=== PATIENT | female | born 1980 | race Caucasian/White ===

== ENCOUNTER → 2024-07-22 11:06 | Outpatient (REF) | payer BC, SELFPAY | LOC: HWWDC 11:06 | PROVIDERS: ATTENDING PHYSICIAN Nurse Practitioner Obstetrics & Gynecology; FAMILY PHYSICIAN Nurse Practitioner Adult Health | DX: Z12.31 Encounter for screening mammogram for malignant neoplasm of breast (principal) | CPT/HCPCS: 77063; 77067 ==

== ENCOUNTER 2025-07-15 14:08 | Emergency (ER) | payer OTHER, SELFPAY ==
[2025-07-15 14:18] VITALS: BP 114/75
[2025-07-15 14:40] LABS: Hematocrit 34.1 % (37.0-47.0); Hemoglobin 10.7 g/dL (12.0-16.0); Mean Corp Hgb Conc. 31.4 g/dL (33.0-37.0); Mean Corpuscular Volume 80.8 fL (81.0-99.0); Nucleated Red Blood Cells % 0 %; Platelet Count 180 10^3/uL (130-400); Red Cell Dist. Width 14.4 % (11.5-14.5)
[2025-07-15 14:57] LABS: Urine Character Clear (Clear)
[2025-07-15 15:01] LABS: HCG, Serum Qualitative Screen Negative
[2025-07-15 15:06] LABS: ALT (SGPT) 24 U/L (0-35); AST (SGOT) 21 U/L (14-36); Albumin 4.6 g/dl (3.5-5.0); Alkaline Phosphatase 36 U/L (38-126); Blood Urea Nitrogen 13 mg/dl (7-17); Calcium 9.3 mg/dl (8.4-10.2); Carbon Dioxide 23 mmol/L (22-30); Chloride 106 mmol/L (98-107); Glucose 148 mg/dl (70-99); Potassium 4.4 mmol/L (3.5-5.1); Sodium 138 mmol/L (135-145); Total Protein 7.2 g/dl (6.3-8.2); eGFR > 60.00
[2025-07-15 15:23] LABS: Urine Squamous Cell >30 /LPF (Few); Urine Urothelial Cell 0-2 /LPF (FEW)
[2025-07-15 15:24] LABS: Urine Red Blood Cell 0-2 /HPF (0-2)
--- NOTE | 2025-07-15 18:30 | ED.GENMED ---
Addendum entered and electronically signed by Arleth Daly PA-C 07/18/25 13:25:
Patient called regarding Bactrim side effects. She states it is giving her bad migraines and she is not able to tolerate it. Patient attempted to get in contact with her PCP several times but has not heard back. She was diagnosed with pyelo at her
ED visit. Urine culture grew out mixed contaminants. Urinary symptoms improved and she has not had any fever today. Prescription for cefdinir sent to pharmacy.
Original Note:
History of Present Illness
General
Chief Complaint: Fever
Source: patient
Exam Limitations: none
Time Seen by Provider: 07/15/25 18:26
Nursing documentation reviewed up to this point in time: agreed with
History of Present Illness
History of Present Illness:
44-year-old female presents to the ER for evaluation. Patient reports on Friday she started with urinary urgency and felt she was getting UTI. She had a telemedicine appointment with her primary care physician who was prescribed Macrobid for
possible UTI. She started that Friday evening 2 nights ago. She had a little mild right flank pain at that time as well. Since then her urinary symptoms have resolved however she continues to have chills and fevers as high as 103. She
complains of feeling very achy. Denies any cough nasal congestion runny nose symptoms. No prior history of renal stone.
Past History
Past History
ED Past Medical History: Other (PCOS)
ED Past Surgical History:
Social History
Tobacco: Non-smoker
Alcohol: None
Drug: None
Personal:
Living: with family
Phy Exam
General Physical Exam
General Presentation: no apparent distress
General age: appears stated age
General Skin: warm and dry
General Habitus: normal
General Mental: alert
General Hydration: appears well hydrated
Gastrointestinal Exam
Gastrointestinal Exam: non tender, soft and no cva tenderness
Neurological Exam
Neurological Exam: alert and oriented x3
Musculoskeletal Exam
Musculoskeletal Exam: full ROM
Skin Exam
Skin Exam: normal color and warm/dry
Psychiatric Exam
Psychiatric Exam: normal mood/affect
Course
Orders/Labs/Results
Orders:
Orders
07/15/25 14:19
Test Result ONCE
07/15/25 14:31
Complete Blood Count/With Diff Urgent
Comprehensive Metabolic Panel Urgent
HCG, Serum Qualitative Screen Urgent
Urinalysis Reflex To Culture Urgent
Date Specimen was Collected: 07/15/25
Time Specimen was Collected: 14:19
Urine Microscopic Reflex Cult Urgent
Urine Culture Urgent
CARLOS Source: U
Specimen Description:
Date Specimen was Collected: 07/15/25
Time Specimen was Collected: 14:19
07/15/25 18:41
CT Abd/Pel (IV only)-DH only Urgent
Comment:
Reason For Exam: Right flank pain
Ketorolac [Toradol] 15 mg IV NOW STA
07/15/25 18:52
COVID-19 Antigen Urgent
Source: Nasal Swab
Influenza A+B Rapid Molecular Urgent
CARLOS Source: Nasal Swab
Specimen Description:
07/15/25 21:31
CefTRIAXone [Rocephin] 1,000 mg IV NOW STA
Abnormal Lab Results
07/15/25
14:31
Hgb 10.7 L g/dL
(12.0-16.0)
Hct 34.1 L %
(37.0-47.0)
MCV 80.8 L fL
(81.0-99.0)
MCH 25.4 L pg
(27.0-31.0)
MCHC 31.4 L g/dL
(33.0-37.0)
Abs Immat Gran (auto) 0.1 H 10^3/uL
(0-0.05)
Absolute Neuts (auto) 7.5 H 10^3/uL
(1.4-6.5)
Absolute Lymphs (auto) 0.9 L 10^3/uL
(1.2-3.4)
Absolute Monos (auto) 1.2 H 10^3/uL
(0.1-0.6)
Immature Gran % 0.6 H %
(0-0.5)
Neutrophils % 77.6 H %
(42.2-75.2)
Lymphocytes % 9.4 L %
(20.5-51.1)
Monocytes % 11.8 H %
(1.7-9.3)
Glucose 148 H mg/dl
(70-99)
Alkaline Phosphatase 36 L U/L
(38-126)
Urine Ketones 1+ A
(Negative)
Ur Occult Blood Reflex 3+ A
(Negative)
Leukocyte Esterase Rfl 1+ A
(Negative)
Urine Bacteria (Reflex) Moderate A
(Negative)
Urine Albumin (Reflex) 3+ A
(Neg - Trace)
07/15/25 14:31
07/15/25 14:31
Vital Signs
Initial and Last Documented VS:
Initial Vital Signs
Temp Pulse Resp BP Pulse Ox
98.2 F 96 16 114/75 99
07/15/25 14:18 07/15/25 14:18 07/15/25 14:18 07/15/25 14:18 07/15/25 14:18
Last Documented Vital Signs
Temp Pulse Resp BP Pulse Ox
98.2 F 101 18 112/78 98
07/15/25 14:18 07/15/25 21:48 07/15/25 21:48 07/15/25 21:48 07/15/25 21:48
Risk Control Field Representative consulted with Physician
Risk Control Field Representative consulted with physician?: Yes
Name of Physician Consulted: Tacho
MDM/Problems Addressed
Differential Diagnosis Includes:
Not limited to UTI pyelonephritis less likely renal colic
MDM/Problems Addressed:
As documented patient is a 44-year-old female who has been on Macrobid for the past several days for possible UTI. Urinary symptoms resolved however patient complains of chills and fevers. Patient presents to the ER awake alert no acute distress
afebrile normal white count normal renal function glucose minimally elevated there is moderate bacteria in urine with +1 leukocytes. CAT scan done suspicious for pyelonephritis. Will give 1 dose of Rocephin here in the ER and discharged on Bactrim
will have patient stop Macrobid.
*Radiology
Radiology exam reviewed: radiology read reviewed
*Pulse Oximetry
SaO2: 99
Oxygen Mode of Delivery: Room air
Patient hypoxic: no
*Critical Care Note
Total Time (30-74mins, 75-104mins- exclusive of procedures): Not Applicable
ED Attending Note
-
Portions of this chart may have been created with voice recognition software.� Occasional wrong word or��sound alike� substitutions may have occurred due to the inherent limitations of voice recognition software.
Discharge Plan
Departure
Patient Disposition: Home (Routine Discharge)
Date of Disposition: 07/15/25
Time of Disposition: 21:34
Patient with high blood pressure during this ER visit?: No
Condition: Fair
Covid-19: Not Applicable
Discharge Problem:
Pyelonephritis
Instructions: Urinary tract infection in adults - ED (DC)
Prescriptions:
New
sulfamethoxazole-trimethoprim [Bactrim DS] 800-160 mg tablet
1 tab PO BID Qty: 20 0RF
No Action
Multi Tablet
1 tab PO DAILY
Referrals:
Ani Harden MD [Family Provider, Internal Medicine]
Activity Restrictions/Additional Instructions:
Your symptoms are consistent with kidney infection. Stop Macrobid and start Bactrim tomorrow: Twice daily for the next 10 days. You were given 1 dose of IV antibiotics here in the ER. Closely follow-up with family doctor Friday or Friday however
return if any worsening of symptoms of increased pain fever chills nausea vomiting.
Interventions
Interventions:
*Risk Screen - Suicide Last Done: 07/15/25 14:19
*General Assessment Last Done: 07/15/25 18:41
*Neglect/Abuse Screening Last Done: 07/15/25 14:19
*ED- Fall Risk Assessment Last Done: 07/15/25 18:41
*ED COVID-19 Vaccine History Last Done: 07/15/25 18:41
*ED Influenza Vaccine History Last Done: 07/15/25 18:41
*Nursing Disposition Last Done: 07/15/25 21:56
ED- Neurological Assessment Last Done: 07/15/25 19:20
ED-Skin Assessment Last Done: 07/15/25 19:20
Discharge Date and Time
Discharge Date/Time: 07/15/25 21:56
Print Language: SYRIAC
[2025-07-15] MEDS: TORADOL 15 MG IV (18:48)
[2025-07-15 19:23] LABS: COVID-19 Antigen Negative (Negative)
[2025-07-15] MEDS: ROCEPHIN 1000 MG IV (21:36)
[2025-07-15 21:48] VITALS: BP 112/78
== END 2025-07-15 21:56 | disposition home or self-care (01) ==
LOC: EMR 14:08
PROVIDERS: Emergency Medicine; Nurse Practitioner; EMERGENCY PHYSICIAN Emergency Medicine; FAMILY PHYSICIAN Internal Medicine
DX: N12 Tubulo-interstitial nephritis, not specified as acute or chronic (principal); R39.15 Urgency of urination; E28.2 Polycystic ovarian syndrome; Z98.891 History of uterine scar from previous surgery
CPT/HCPCS: 99284; 96374; 96375; 74177; 80053; 81003; 81015; 84703; 85025; 87086; 87502; 87811; Q9967